=== PATIENT | male | born 1960 ===

== ENCOUNTER 2022-04-16 04:11 | Day surgery (SDC) | payer BC ==
[2022-04-12 09:33] VITALS: BMI 31.6
[~2022-04-16 04:11] MED LIST: ceFAZolin SODIUM 1 GM VIAL IVPB ONE
[2022-04-16] MEDS ORDERED: oxyCODONE HCL 5 MG TABLET PO PRN (11:58)
[2022-04-16] MEDS ORDERED: PROMETHAZINE HCL 25 MG/1 ML VIAL IVPB PRN (11:58)
[2022-04-16] MEDS ORDERED: ONDANSETRON 4 MG/2 ML VIAL IVPUSH PRN (11:58)
[2022-04-16] MEDS ORDERED: LACTATED RINGERS SOLUTION 1,000 ML IV SCH (12:00)
[2022-04-16] MEDS ORDERED: MIDAZOLAM HCL 2 MG/2 ML SINGLE DOSE VIAL ONE (12:19)
[2022-04-16] MEDS ORDERED: ceFAZolin SODIUM 1 GM VIAL IVPB ONE (12:23)
[2022-04-16] MEDS ORDERED: LIDOCAINE HCL 2% JELLY 11 ML TP ONE (12:27)
[2022-04-16 14:13] VITALS: RESP 16
[2022-04-16 15:32] VITALS: BP 135/88; PULSE 67; TEMP 98
== END 2022-04-16 14:45 | disposition home or self-care (01) ==
LOC: JASU-SURG 04:11
PROVIDERS: ATTEND Urology
PROC: 0TC08ZZ Extirpation of Matter from Right Kidney, Via Natural or Artificial Opening Endoscopic (ICD-10-PCS; principal; 2022-04-16 10:30)
PROC: 0T768DZ Dilation of Right Ureter with Intraluminal Device, Via Natural or Artificial Opening Endoscopic (ICD-10-PCS; 2022-04-16 10:30)
PROC: BT1DYZZ Fluoroscopy of Right Kidney, Ureter and Bladder using Other Contrast (ICD-10-PCS; 2022-04-16 10:30)
DX: N20.1 Calculus of ureter (principal)
CPT/HCPCS: 76000-TC-FY; 94760; C1758; C2617